=== PATIENT | male | born 1995 | race Caucasian/White ===

== ENCOUNTER 2021-07-26 07:55 | Emergency (ER) | payer SELFPAY ==
[2021-07-26 07:50] VITALS: BP 132/79; PULSE 83; RESP 18; TEMP 36.9; O2SAT 99
[2021-07-26] MEDS: LORazepam INJ (*CRX) 2 MG/ML VIAL IM (08:08)
[2021-07-26] MEDS: HALOPERIDOL LACTATE 5 MG/ML VIAL IM (08:08)
--- NOTE | 2021-07-26 08:15 | ECG_ITS ---
Measurements Intervals [place] Rate: 0 P: CT: 0 QRS: QRSD: 0 T: QT: 0 QTc: 0 Interpretive Statements BASELINE ARTIFACT/REDUCED ECG QUALITY SINUS RHYTHM NONSPECIFIC T-WAVE ABNORMALITY ABNORMAL ECG WARNING: DATA QUALITY MAY AFFECT INTERPRETATION NO PREVIOUS ECG AVAILABLE FOR COMPARISON Electronically Signed On 07-26-2021 15:31:39 CDT by Tyshawn Cast M.D.
--- NOTE | 2021-07-26 08:30 | PC.NURSE ---
Pt calm and cooperative at this time. Restraints removed. Pt able to answer questions appropriatly at this time. PD at bedside.
[2021-07-26 08:33] LABS: Glucose Point of Care 146 mg/dl (65-105)
[2021-07-26 08:50] LABS: Basophils Percent Auto 0.3 % (0.2-1.2); Hematocrit 48.3 % (42.0-52.0); Hemoglobin 16.4 g/dL (14.0-18.0); Immature Granulocyte Absolute 0.02 K/mm3 (0.00-0.031); Immature Granulocyte Percent A 0.3 % (0-0.5); Lymphocytes Absolute Auto 0.85 K/mm3 (0.9-3.2); Lymphocytes Percent Auto 13.6 % (18.3-44.2); Mean Corpuscular Hemoglobin 29.9 pg (26-34); Monocytes Absolute Auto 0.8 K/mm3 (0.1-0.6); Monocytes Percent Auto 12.7 % (2.6-8.5); Neutrophils Absolute Auto 4.6 K/mm3 (1.3-6.7); Neutrophils Percent Auto 73.1 % (45.5-73.1); Platelet Count Result 263 k/mm3 (150-375); Red Blood Count 5.49 M/mm3 (4.6-6.20); Red Cell Distribution Width 12.5 % (11.5-14.5); White Blood Count 6.2 K/mm3 (4.5-10.0)
[2021-07-26 08:56] VITALS: BP 106/91; PULSE 124; RESP 18; O2SAT 96
[2021-07-26 08:57] VITALS: BP 106/91; PULSE 121; RESP 20; O2SAT 98
[2021-07-26 08:59] LABS: Alanine Aminotransferase 29 U/L (6-50); Albumin Level 5.2 g/dL (3.5-5.1); Alkaline Phosphatase 71 U/L (38-126); Anion Gap 14 mmol/L (8-16); Aspartate Amino Transferase 29 U/L (17-59); Bilirubin,Total 0.4 mg/dL (0.2-1.3); Blood Urea Nitrogen 11 mg/dL (9-20); Calcium 9.7 mg/dL (8.4-10.2); Carbon Dioxide 24 mmol/L (22-30); Chloride 104 mmol/L (98-107); Creatine Kinase 233 U/L (55-170); Estimated CRCL calculation 116 ml/min; Estimated Glomerular Filt Rate > 60; Glucose 131 mg/dL (65-110); Potassium 3.2 mmol/L (3.4-5.0); Sodium 142 mmol/L (137-145)
--- NOTE | 2021-07-26 09:03 | ED.AMS ---
HPI - Altered Mental Status General Chief Complaint: Altered Mental Status Stated Complaint: AMS, Fit for Confinement Time Seen by Provider: 07/26/21 07:59 Source: patient, EMS, RN notes reviewed and police Mode of arrival: EMS Limitations: altered mental status History of Present Illness HPI narrative: This is a 25 year old male with history of alcoholism who presents via EMS with police for evaluation of altered mental status. Police states patient was driving erratically so they were called. Patient was found in car acting bizzarre. Officer states patient told them he took shrooms. Patient is yelling and unable to be redirected. He is aware of his name. Police deny any damage to car. Related Data Home Medications Medication Instructions Recorded Confirmed bupropion HCl 150 mg 24 hr tablet, tablet PO 07/26/21 07/26/21 extended release dextroamphetamine-amphetamine 5 mg tablet 07/26/21 tablet dextroamphetamine-amphetamine ER cap PO 07/26/21 10 mg 24hr capsule,extend release fluoxetine 20 mg capsule cap 07/26/21 hydroxyzine HCl 25 mg tablet tablet 07/26/21 trazodone 50 mg tablet tablet 07/26/21 Allergies Allergy/AdvReac Type Severity Reaction Status Date / Time No Known Allergies Allergy Verified 07/26/21 08:07 Review of Systems Review of Systems: All systems reviewed & are unremarkable except as noted in HPI and below Constitutional: Constitutional: Denies chills and Denies fever(s) Cardiovascular: Cardiovascular: Denies chest pain and Denies rapid heart rate Respiratory: Respiratory: Denies chest congestion and Denies cough Gastrointestinal: Gastrointestinal: Denies abdominal pain, Denies bloating and Denies constipation Musculoskeletal: Musculoskeletal: Denies back pain and Denies myalgias Integumentary/Breasts: Skin/Breast: Denies breast pain and Denies breast mass Psychiatric: Psychiatric: Denies anxiety and Denies depression [facility] Past Medical History Medical History (Updated 07/26/21 @ 12:07 by Meena Farris MD) Patient denies medical problems Surgical History Surgical History (Updated 07/26/21 @ 09:11 by Meena Farris MD) History of tonsillectomy Social History Social History (Updated 07/26/21 @ 09:11 by Meena Farris MD) Alcohol use details: alcoholism Exam Const: General: alert Nutritional Appearance: well nourished Limitations: altered mental status Other: patient agitated HENMT: Head: normal to inspection, no contusions and no hematomas Eyes: Pupils: Equal, round and reactive pupils present EOM: EOMs intact bilaterally Resp: Effort & Inspection: normal respiratory effort Auscultation: clear to auscultation bilaterally Cardio: Rate: tachycardic Rhythm: regular rhythm Heart sounds: no murmurs GI: GI Palp: Yes Soft to palpation, No Tenderness to palpation present (GI), No Guarding due to palpation present (GI) and No Rigid due to palpation Auscultation: normal bowel sounds Skin: General skin exam: normal color Rashes: no rashes Neuro: General: moves all extremities, no meningeal signs and CN's II-XI intact bilaterally Extrem: General: normal to inspection and no clubbing, cyanosis or edema Psych: Appearance: disheveled Speech and movement: Psychomotor agitation in speech present Affect: Hostile affect present Attitude: Belligerent attititude/behavior present Insight: Poor insight present (Psych) Course Reevaluation(s) Reevaluation #1: Patient is now calm and oriented to person, place, year and month. He remembers being events leading to ER. He denies any complaints. Date: 07/26/21 Time: 09:07 Reevaluation #2: Patient is awake and able to ambulate. He will be discharged in police custody Date: 07/26/21 Time: 12:03 Vital Signs Vital signs: Vital Signs Temperature 98.4 F 07/26/21 07:50 Pulse Rate 83 07/26/21 07:50 Respiratory Rate 18 07/26/21 07:50 Blood Pressure 132/79 07/26/21 07:50 Pul
[2021-07-26 09:04] LABS: Appearance Urine Cloudy (Clear); Bilirubin Urine Negative (Negative); Blood Urine Negative (Negative); Color Urine Yellow (Yellow); Glucose Urine UA Negative (Negative); Ketones Urine Negative (Negative); Leukocyte Esterase Ur Negative LEU/UL (Negative); Nitrate Urine Negative (Negative); Protein Urine Trace mg/dL (Negative); Specific Grav Ur 1.025 (1.001-1.035); Urobilinogen Urine 0.2 mg/dL (<2.0)
[2021-07-26 09:09] LABS: Prothrombin Time 12.9 Seconds (11.1-14.7)
[2021-07-26 09:10] LABS: Partial Thromboplastin Time 28.2 SECONDS (22.3-36.8)
[2021-07-26] MEDS: LACTATED RINGERS 1,000 ML 999 ML IV CONT (09:12)
[2021-07-26 09:18] LABS: Amorphous Sediment Urine Few; WBC Urine 0-3 /hpf
[2021-07-26 09:23] LABS: Add Urine Microscopic? YES
--- NOTE | 2021-07-26 09:28 | PC.NURSE ---
Pt sleeping at this time. PD at bedside
[2021-07-26 09:47] LABS: Amphetamine Screen Urine Positive (Negative); Barbiturate Screen Urine Negative (Negative); Benzodiazepines Screen Urine Negative (Negative); Cannabinoid Screen Urine Positive (Negative); Cocaine Screen Urine Negative (Negative); Methadone Screen Urine Negative (Negative); Opiate Screen Urine Negative (Negative); Phencyclidine Screen Urine Negative (Negative)
--- NOTE | 2021-07-26 10:08 | PC.NURSE ---
Pt called, provided some information about medications and PMH.
[2021-07-26 10:17] LABS: Acetaminophen < 10 ug/mL (10-30); Ammonia 10 umol/L (9-30); Ethanol < 10 mg/dL (<10); Salicylate 3.9 mg/dL (2-20)
--- NOTE | 2021-07-26 10:22 | PC.NURSE ---
pt sleeping at this time
[2021-07-26 10:36] VITALS: BP 134/90; PULSE 70; RESP 18; O2SAT 98
[2021-07-26 11:07] VITALS: BP 97/43; PULSE 63; RESP 17; O2SAT 100
--- NOTE | 2021-07-26 12:02 | PC.NURSE ---
pt ambulatory to the bathroom with minimal assistance
[2021-07-26] MEDS: POTASSIUM CHLORIDE 20 MEQ TABLET 40 MEQ PO (12:16)
[2021-07-26 12:20] VITALS: BP 126/73; PULSE 115; RESP 12; O2SAT 100
== END 2021-07-26 12:24 ==
PROVIDERS: Emergency Provider General Practice
DX: F15.929 Other stimulant use, unspecified with intoxication, unspecified (principal); F10.20 Alcohol dependence, uncomplicated
CPT/HCPCS: 36415; 80053; 80307; 81001; 82140; 82550; 82948; 84443; 85025; 85610; 85730; 93005; 96360; 96372; 99284; A9270; J1630; J2060; J7120